=== PATIENT | female | born 1990 ===

== ENCOUNTER 2020-11-02 06:11 | Inpatient (IN) ==
[2020-11-02] MEDS: LACTATED RINGERS 1,000 ML IV SCH ×2 (07:19→15:51)
[2020-11-02] MEDS ORDERED: ONDANSETRON 4 MG/2 ML VIAL IV PRN ×2 (07:20→21:46)
[2020-11-02] MEDS ORDERED: LIDOCAINE 1% 50 ML VIAL MISC INJ ONE (07:20)
[2020-11-02] MEDS ORDERED: TERBUTALINE 1 MG/1 ML VIAL SUBCUT PRN (07:20)
[2020-11-02] MEDS ORDERED: CARBOPROST TROMETHAMINE 250 MCG/ML AMP IM PRN (07:20)
[2020-11-02] MEDS ORDERED: miSOPROStoL 200 MCG TABLET VAG PRN (07:20)
[2020-11-02 07:28] LABS: Amorphous Crystals,Urine Occasional /HPF (Few); Bacteria,Urine Occasional /HPF (Few); Bilirubin,Urine Negative (Negative); Blood, Urine Negative (Negative); Glucose,Urine (UA) Negative (Negative); Ketones,Urine Negative (Negative); Mucus,Urine Occasional /LPF (Occasional); Nitrite,Urine Negative (Negative); Protein,Urine Negative; Squamous Epithelial Cell,Urine Few /HPF (0-10); Urine Appearance Slightly Hazy (Clear); Urine Color Yellow (Yellow); Urine Urobilinogen < 2.0 EU/DL (0.2-1.0)
[2020-11-02] MEDS ORDERED: LACTATED RINGERS 1,000 ML IV SCH (07:30)
[2020-11-02 07:50] LABS: Basophils % 0.4 % (0.0-0.8); Eosinophils % 0.6 % (0.00-10.9); Hematocrit 33.1 VOL% (35.7-47.0); Hemoglobin 11.1 GM/DL (12.0-16.0); Immature Granulocytes % 0.6 %; Immature Granulocytes Absolute 0.04 #; Lymphocytes # 1.5 10*3/uL (1.4-4.0); Lymphocytes % 20.9 % (21.3-54.2); Mean Corpuscular HGB Conc 33.5 GM/DL (32-36); Mean Corpuscular Volume 95.9 FL (87-102); Mean Platelet Volume 11.6 FL (9.6-12.0); Monocytes % 10.2 % (1.7-12.7); Neutrophils % 67.3 % (38.7-73.9); Platelet Count 144 T/CUMM (130-400); Red Blood Count 3.45 MC/CUMM (3.8-5.5); Red Cell Distribution Width 12.3 % (9.3-17.3); White Blood Count 6.9 T/CUMM (4-12)
[2020-11-02] MEDS: CLINDAMYCIN INJ 900 MG/50 ML PREMIX IV SCH ×3 (07:51→20:22)
[2020-11-02] MEDS ORDERED: HYDROCORTISONE 2.5% RECTAL CREAM 30 GM TUBE TOP PRN (21:46)
[2020-11-02] MEDS ORDERED: BENZOCAINE 20%/MENTHOL 0.5% SPRAY 56 GM CAN TOP PRN (21:46)
[2020-11-02] MEDS ORDERED: ACETAMINOPHEN 325 MG TABLET PO PRN (21:46)
[2020-11-02] MEDS ORDERED: MEASLES/MUMPS/RUBELLA VACCINE 0.5 ML VIAL SUBCUT ONE (21:46)
[2020-11-02] MEDS ORDERED: OXYTOCIN/LR 20 UNIT/1,000 ML BAG IV ONE (21:46)
[2020-11-02] MEDS ORDERED: WITCH HAZEL PADS 100/JAR TOP PRN (21:46)
[2020-11-02] MEDS ORDERED: BISACODYL 10 MG SUPP RECTAL PRN (21:46)
[2020-11-02] MEDS ORDERED: oxyCODONE/ACETAMINOPHEN 5-325 MG TABLET PO PRN ×2 (21:46)
[2020-11-02] MEDS ORDERED: RHO(D) IMMUNE GLOBULIN 300 MCG SYRINGE IM ONE (21:46)
[2020-11-02] MEDS ORDERED: DIPH/TET/ACEL PERT BOOSTER VACCINE 0.5 ML VIAL IM ONE (21:46)
[2020-11-02] MEDS ORDERED: LANOLIN 50% CREAM 0.3 OZ TUBE TOP PRN (21:46)
[2020-11-03] MEDS: CLINDAMYCIN INJ 900 MG/50 ML PREMIX IV SCH ×3 (02:43→15:13)
[2020-11-03 05:16] LABS: Basophils % 0.3 % (0.0-0.8); Eosinophils % 0.3 % (0.00-10.9); Hematocrit 34.6 VOL% (35.7-47.0); Hemoglobin 11.3 GM/DL (12.0-16.0); Immature Granulocytes % 0.5 %; Immature Granulocytes Absolute 0.05 #; Lymphocytes # 1.7 10*3/uL (1.4-4.0); Lymphocytes % 18.2 % (21.3-54.2); Mean Corpuscular HGB Conc 32.7 GM/DL (32-36); Mean Corpuscular Volume 96.9 FL (87-102); Mean Platelet Volume 11.9 FL (9.6-12.0); Monocytes % 10.1 % (1.7-12.7); Neutrophils % 70.6 % (38.7-73.9); Platelet Count 152 T/CUMM (130-400); Red Blood Count 3.57 MC/CUMM (3.8-5.5); Red Cell Distribution Width 12.3 % (9.3-17.3); White Blood Count 9.4 T/CUMM (4-12)
[2020-11-03] MEDS: LACTATED RINGERS 1,000 ML IV SCH (08:37)
[2020-11-03] MEDS ORDERED: MEPERIDINE 50 MG/1 ML VIAL IV PRN (09:48)
[2020-11-03] MEDS ORDERED: BUTORPHANOL 2 MG/ML VIAL IV PRN (09:48)
[2020-11-03] MEDS ORDERED: CITRIC ACID/SODIUM CITRATE 30 ML UDCUP PO ONE (11:16)
[2020-11-03] MEDS ORDERED: NALOXONE 0.4 MG/ML VIAL IV PRN (11:16)
[2020-11-03] MEDS ORDERED: ePHEDrine 50 MG/ML VIAL IV PRN (11:16)
[2020-11-03] MEDS ORDERED: LACTATED RINGERS 1,000 ML IV ONE (11:16)
[2020-11-03] MEDS ORDERED: FAMOTIDINE 20 MG/2 ML VIAL IV ONE ×2 (11:16→11:22)
[2020-11-03] MEDS ORDERED: diphenhydrAMINE 50 MG/1 ML VIAL IV PRN (11:16)
[2020-11-03] MEDS ORDERED: fentaNYL 2 MCG/ROPIV 0.2% EPID 100 ML EPIDURAL SCH (11:30)
[2020-11-03] MEDS ORDERED: miSOPROStoL 200 MCG TABLET ONE (14:06)
[2020-11-03] MEDS ORDERED: OXYTOCIN/LR 20 UNIT/1,000 ML BAG IV ONE ×2 (14:07→19:57)
[2020-11-03] MEDS ORDERED: TRANEXAMIC ACID 1,000 MG/10 ML VIAL ONE (14:07)
[2020-11-03] MEDS ORDERED: METHYLERGONOVINE 0.2 MG/1 ML AMP ONE (14:07)
[2020-11-03] MEDS ORDERED: CARBOPROST TROMETHAMINE 250 MCG/ML AMP IM ONE (14:08)
[2020-11-03] MEDS ORDERED: SODIUM CHLORIDE 0.9% 0 ML IV ONE (14:09)
[2020-11-03 14:23] LABS: Bilirubin,Urine Negative (Negative); Blood, Urine Negative (Negative); Glucose,Urine (UA) Negative (Negative); Ketones,Urine 20 mg/dL (Negative); Nitrite,Urine Negative (Negative); Protein,Urine Negative; RBC,Urine 1 /HPF (0-4); Urine Appearance CLEAR (Clear); Urine Color Straw (Yellow); Urine Specific Gravity 1.012 (1.001-1.035); Urine Urobilinogen < 2.0 EU/DL (0.2-1.0)
[2020-11-03] MEDS ORDERED: RHO(D) IMMUNE GLOBULIN 300 MCG SYRINGE IM ONE (19:57)
[2020-11-03] MEDS ORDERED: LANOLIN 50% CREAM 0.3 OZ TUBE TOP PRN (19:57)
[2020-11-03] MEDS ORDERED: oxyCODONE/ACETAMINOPHEN 5-325 MG TABLET PO PRN ×2 (19:57)
[2020-11-03] MEDS ORDERED: ACETAMINOPHEN 325 MG TABLET PO PRN (19:57)
[2020-11-03] MEDS ORDERED: HYDROCORTISONE 2.5% RECTAL CREAM 30 GM TUBE TOP PRN (19:57)
[2020-11-03] MEDS ORDERED: BENZOCAINE 20%/MENTHOL 0.5% SPRAY 56 GM CAN TOP PRN (19:57)
[2020-11-03] MEDS ORDERED: WITCH HAZEL PADS 100/JAR TOP PRN (19:57)
[2020-11-03] MEDS ORDERED: DIPH/TET/ACEL PERT BOOSTER VACCINE 0.5 ML VIAL IM ONE (19:57)
[2020-11-03] MEDS ORDERED: IBUPROFEN 800 MG TABLET PO PRN (19:57)
[2020-11-03] MEDS ORDERED: BISACODYL 10 MG SUPP RECTAL PRN (19:57)
[2020-11-03] MEDS ORDERED: MEASLES/MUMPS/RUBELLA VACCINE 0.5 ML VIAL SUBCUT ONE (19:57)
[2020-11-03] MEDS ORDERED: ONDANSETRON 4 MG/2 ML VIAL IV PRN (19:57)
[2020-11-03 20:16] LABS: Cord Venous Blood HCO3 20.6 MMOL/L; Cord Venous Blood PCO2 43.8 MMHG; Cord Venous Blood PO2 26.3
[2020-11-03] MEDS ORDERED: DOCUSATE SODIUM 100 MG CAPSULE PO SCH (21:00)
[2020-11-03] MEDS: IBUPROFEN 800 MG TABLET PO PRN (22:48)
[2020-11-03] MEDS: DOCUSATE SODIUM 100 MG CAPSULE PO SCH (22:50)
[2020-11-04 05:44] LABS: Basophils % 0.2 % (0.0-0.8); Hematocrit 34.9 VOL% (35.7-47.0); Hemoglobin 11.5 GM/DL (12.0-16.0); Immature Granulocytes % 0.7 %; Immature Granulocytes Absolute 0.12 #; Lymphocytes # 1.6 10*3/uL (1.4-4.0); Lymphocytes % 8.7 % (21.3-54.2); Mean Corpuscular Volume 96.9 FL (87-102); Mean Platelet Volume 12.1 FL (9.6-12.0); Monocytes % 7.3 % (1.7-12.7); Neutrophils % 83.1 % (38.7-73.9); Platelet Count 152 T/CUMM (130-400); Red Cell Distribution Width 12.4 % (9.3-17.3); White Blood Count 17.7 T/CUMM (4-12)
[2020-11-04] MEDS: IBUPROFEN 800 MG TABLET PO PRN ×3 (09:08→21:16)
[2020-11-04] MEDS: DOCUSATE SODIUM 100 MG CAPSULE PO SCH ×2 (09:10→21:16)
[2020-11-04] MEDS ORDERED: ACETAMINOPHEN 500 MG TABLET PO PRN (18:04)
[2020-11-05] MEDS: IBUPROFEN 800 MG TABLET PO PRN (03:22)
[2020-11-05 08:15] VITALS: BP 113/78
[2020-11-05] MEDS: DOCUSATE SODIUM 100 MG CAPSULE PO SCH (09:06)
== END 2020-11-05 12:45 | disposition home or self-care (01) | DRG 807 ==
LOC: N.OB 06:11 → N.LD 18:58 → N.OB 11-03 22:10
PROVIDERS: ADMIT Obstetrics & Gynecology; ATTEND Obstetrics & Gynecology